=== PATIENT | male | born 1970 | race African-American/Black ===

== ENCOUNTER 2017-10-18 12:35 | Emergency (ER) | payer OTHER ==
[~2017-10-18] VITALS: Ht 177.8 cm; Wt 117.9 kg
[~2017-10-18 12:35] MED LIST: CLEOCIN HCL300 MG PO; FLEXERIL PO; HYDROCODONE-AP1 EAC6 PO; IBUPROFEN 600600 M1 PO; IBUPROFEN 800800 MG PO; NOHOMEMEDICATIONS; NORCO 5-325 TA1 EACH PO; PERCOCET 5-3251 EACH PO; VENTOLIN HFA 1818 GM INH
[2017-10-18 14:40] LABS: URINE BILIRUBIN NEGATIVE (Negative); URINE BLOOD TRACE (Negative); URINE CLARITY CLEAR; URINE COLOR YELLOW; URINE GLUCOSE-RANDOM* NEGATIVE (Negative); URINE KETONES NEGATIVE (Negative); URINE LEUKOCYTES-REFLEX NEGATIVE (Negative); URINE NITRITE-REFLEX NEGATIVE (Negative); URINE PROTEIN (DIPSTICK) NEGATIVE (Negative); URINE UROBILINOGEN 0.2 E.U./dl (0.2-1.0)
== END 2017-10-18 15:34 | disposition home or self-care (01) ==
LOC: ER 12:35
PROVIDERS: Emergency Medicine
DX: J98.8 Other specified respiratory disorders (principal); F17.210 Nicotine dependence, cigarettes, uncomplicated; Z90.49 Acquired absence of other specified parts of digestive tract

== ENCOUNTER 2017-11-26 17:09 | Emergency (ER) | payer OTHER ==
[~2017-11-26] VITALS: Ht 177.8 cm; Wt 117.9 kg
[2017-11-26] MEDS ORDERED: NORCO 5-325 TA1 EACH PO (17:28)
[2017-11-26] MEDS ORDERED: NEURONTIN 300300 M1 PO (17:28)
== END 2017-11-26 17:49 | disposition home or self-care (01) ==
LOC: ER 17:09
DX: G62.9 Polyneuropathy, unspecified (principal); F17.210 Nicotine dependence, cigarettes, uncomplicated; Z90.49 Acquired absence of other specified parts of digestive tract

== ENCOUNTER 2018-01-15 13:50 | Emergency (ER) | payer OTHER ==
[~2018-01-15] VITALS: Ht 180.3 cm; Wt 98.0 kg
[~2018-01-15 13:50] MED LIST changes: +NEURONTIN 300300 M1 PO
[2018-01-15 13:56] VITALS: BP 135/94
[2018-01-15] MEDS ORDERED: NAPROSYN500 MG PO (14:57)
== END 2018-01-15 15:26 | disposition home or self-care (01) ==
LOC: ER 13:50
DX: M79.641 Pain in right hand (principal); M77.9 Enthesopathy, unspecified; F17.210 Nicotine dependence, cigarettes, uncomplicated; Z90.49 Acquired absence of other specified parts of digestive tract

== ENCOUNTER 2019-08-26 17:17 | Emergency (ER) | payer OTHER ==
[~2019-08-26] VITALS: Ht 180.3 cm; Wt 120.2 kg
[~2019-08-26 17:17] MED LIST changes: +NAPROSYN500 MG PO
[2019-08-26 19:08] LABS: ABSOLUTE NEUTROPHILS 6.2 thou/uL (1.4-8.2); BASOPHILS 1.1 % (0.0-2.0); EOSINOPHILS 1.6 % (0.0-3.0); HEMATOCRIT 44.7 % (42.0-52.0); HEMOGLOBIN 14.5 gm/dL (14.0-18.0); LYMPHOCYTES 28.3 % (24.0-44.0); MCH 25.9 pg (26.0-34.0); MCHC 32.5 g/dL (28.0-37.0); MCV 79.7 fL (80.0-100.0); MONOCYTES 7.2 % (1.0-8.0); PLATELET COUNT 336 thou/uL (150-400); POLYS 61.8 % (36.0-66.0); RBC 5.61 mil/uL (4.50-6.00); RDW 14.8 % (10.5-14.5); WBC 10.1 thou/uL (4.0-11.0)
[2019-08-26 19:15] LABS: CALCIUM 9.2 mg/dL (8.5-10.1); CREATININE 1.2 mg/dL (0.7-1.3); POTASSIUM 3.9 mmol/L (3.5-5.1)
[2019-08-26 19:21] LABS: ALBUMIN 3.3 g/dL (3.4-5.0); TOTAL BILIRUBIN 0.3 mg/dL (<0.1-1.0); TOTAL PROTEIN 7.8 g/dL (6.4-8.2)
[2019-08-26] MEDS ORDERED: STOOL SOFTENER100 MG PO (19:30)
[2019-08-26 19:46] VITALS: BP 123/87
== END 2019-08-26 19:37 | disposition home or self-care (01) ==
LOC: ER 17:17
PROVIDERS: Physician Assistant
DX: K60.2 Anal fissure, unspecified (principal); F17.210 Nicotine dependence, cigarettes, uncomplicated; Z90.49 Acquired absence of other specified parts of digestive tract

== ENCOUNTER 2020-07-13 20:19 | Emergency (ER) | payer OTHER ==
[~2020-07-13] VITALS: Ht 180.3 cm; Wt 120.2 kg
[~2020-07-13 20:19] MED LIST changes: +STOOL SOFTENER100 MG PO
[2020-07-13 20:21] VITALS: BP 159/105
== END 2020-07-13 20:54 | disposition home or self-care (01) ==
LOC: ER 20:19
DX: L60.1 Onycholysis (principal); F17.210 Nicotine dependence, cigarettes, uncomplicated; Z90.49 Acquired absence of other specified parts of digestive tract; Z79.899 Other long term (current) drug therapy

== ENCOUNTER 2020-07-19 21:13 | Emergency (ER) | payer OTHER ==
[~2020-07-19] VITALS: Ht 180.3 cm; Wt 118.8 kg
[2020-07-19 22:40] LABS: ABSOLUTE NEUTROPHILS 6.1 thou/uL (1.4-8.2); BASOPHILS 0.9 % (0.0-2.0); HEMATOCRIT 41.6 % (42.0-52.0); LYMPHOCYTES 20.7 % (24.0-44.0); MCH 26.7 pg (26.0-34.0); MCHC 33.6 g/dL (28.0-37.0); MCV 79.4 fL (80.0-100.0); MONOCYTES 7.4 % (1.0-8.0); PLATELET COUNT 295 thou/uL (150-400); RBC 5.23 mil/uL (4.50-6.00)
[2020-07-19 22:57] LABS: CALCIUM 7.6 mg/dL (8.5-10.1); CREATININE 1.3 mg/dL (0.7-1.3); POTASSIUM 3.6 mmol/L (3.5-5.1)
[2020-07-19 23:02] LABS: ALBUMIN 2.9 g/dL (3.4-5.0); TOTAL BILIRUBIN 0.2 mg/dL (0.2-1.0); TOTAL PROTEIN 6.7 g/dL (6.4-8.2)
[2020-07-19 23:28] LABS: URINE BILIRUBIN NEGATIVE (Negative); URINE BLOOD NEGATIVE (Negative); URINE CLARITY CLEAR; URINE COLOR YELLOW; URINE GLUCOSE-RANDOM* NEGATIVE (Negative); URINE KETONES NEGATIVE (Negative); URINE LEUKOCYTES-REFLEX NEGATIVE (Negative); URINE NITRITE-REFLEX NEGATIVE (Negative); URINE PROTEIN (DIPSTICK) NEGATIVE (Negative); URINE SPECIFIC GRAVITY >= 1.030 (1.005-1.035); URINE UROBILINOGEN 0.2 E.U./dl (0.2-1.0)
[2020-07-19 23:42] LABS: AMP/METHAMP Negative (Negative); BARBITURATES Negative (Negative); BENZODIAZEPINES Negative (Negative); COCAINE POSITIVE (Negative); METHADONE Negative (Negative); OPIATES Negative (Negative); PCP Negative (Negative)
[2020-07-20 00:21] VITALS: BP 131/75
== END 2020-07-20 00:22 | disposition home or self-care (01) ==
LOC: ER 21:13
PROVIDERS: Emergency Medicine
DX: R20.2 Paresthesia of skin (principal); F11.10 Opioid abuse, uncomplicated; M21.42 Flat foot [pes planus] (acquired), left foot; M21.41 Flat foot [pes planus] (acquired), right foot; F12.10 Cannabis abuse, uncomplicated; M67.441 Ganglion, right hand; F17.210 Nicotine dependence, cigarettes, uncomplicated; Z90.49 Acquired absence of other specified parts of digestive tract; Z79.899 Other long term (current) drug therapy